=== PATIENT | male | born 1950 | race African-American/Black ===

== ENCOUNTER 2020-08-24 20:31 | Emergency (ER) | payer MEDICARE, OTHER ==
[~2020-08-24] VITALS: Ht 185.4 cm; Wt 105.0 kg
[2020-08-24] MEDS ORDERED: SODIUM CHLORIDE 0.9% 1,000 ML IV ONE (22:45)
[2020-08-24 23:17] LABS: BASOPHILS % 0.5 % (0.0-2.0); EOSINOPHILS % 0.3 % (0.0-5.0); HEMATOCRIT. 50.6 % (42.0-52.0); HEMOGLOBIN. 16.8 g/dL (14.0-18.0); LYMPHOCYTES % 22.8 % (20.0-50.0); MEAN CORPUSCULAR HEMOGLOBIN 29.8 pg (28.0-32.0); MEAN CORPUSCULAR VOLUME 90.1 fL (80.0-94.0); MEAN PLATELET VOLUME 7.9 fl (7.4-10.4); MONOCYTES % 9.2 % (2.0-8.0); NEUTROPHILS % 67.2 % (40.0-76.0); PLATELET 254 x1000/uL (130-400); RED BLOOD CELL COUNT 5.62 mill/uL (4.7-6.1); RED CELL DISTRIBUTION WIDTH 13.3 % (11.6-14.6)
[2020-08-24 23:24] LABS: CHLORIDE 92 mEq/L (98-107)
[2020-08-24 23:30] LABS: BETA HYDROXYBUTYRATE 3.1 mMol/L (0.0-0.3)
[2020-08-25] MEDS ORDERED: SODIUM CHLORIDE 0.9% 1,000 ML IV ONE
[2020-08-25] MEDS ORDERED: INSULIN REGULAR (HUMULIN R) 300UNITS/3ML VIAL IV ONE ×2 (02:30)
[2020-08-25 03:36] LABS: BG BASE EXCESS -3.3 mmol/L (-2.0-2.0); BG CARBOXYHEMOGLOBIN 0.8 % (0.5-1.5); BG DEOXYHEMOGLOBIN 3.9 % (0.0-5.0); BG FRACTION INSPIRED OXYGEN 21; BG HCO3 ACT 21.6 mmol/L (22.0-26.0); BG OXYGEN SATURATION 96.1 % (92.0-98.5); BG OXYHEMOGLOBIN 95.3 % (94.0-97.0); BG PCO2 38.7 mmHg (35.0-45.0); BG PH 7.365 (7.350-7.450); BG PO2 85.3 mmHg (75.0-100.0); BG SAMPLE SITE LEFT RADIAL; BG TOTAL HEMOGLOBIN 16.2 g/dL (12.0-18.0); BG VENT MODE ROOM AIR
[2020-08-25 04:20] VITALS: BP 105/92
== END 2020-08-25 04:20 | disposition home or self-care (01) ==
LOC: ER 20:31
DX: E11.65 Type 2 diabetes mellitus with hyperglycemia (principal); Z91.14 Patient's other noncompliance with medication regimen; Z79.4 Long term (current) use of insulin
CPT/HCPCS: 36415; 36600; 71045; 80053; 82010; 82375; 82805; 82962; 83690; 83880; 85025; 93005; 96361; 96374; 99285; J1815; J7030

== ENCOUNTER 2022-08-25 16:54 | Inpatient (IN) | payer OTHER ==
[~2022-08-25] VITALS: Ht 177.8 cm; Wt 122.9 kg
[2022-08-25 18:16] LABS: BASOPHILS % 0.6 % (0.0-2.0); HEMATOCRIT. 30.6 % (42.0-52.0); HEMOGLOBIN. 9.8 g/dL (14.0-18.0); LYMPHOCYTES % 12.4 % (20.0-50.0); MEAN CORPUSCULAR HEMOGLOBIN 28.1 pg (28.0-32.0); MEAN CORPUSCULAR VOLUME 87.8 fL (80.0-94.0); MEAN PLATELET VOLUME 6.9 fl (7.4-10.4); MONOCYTES % 6.1 % (2.0-8.0); NEUTROPHILS % 78.9 % (40.0-76.0); PLATELET 438 x1000/uL (130-400); RED BLOOD CELL COUNT 3.49 mill/uL (4.7-6.1)
[2022-08-25 18:33] LABS: BG BASE EXCESS -3.8 mmol/L (-2.0-2.0); BG CARBOXYHEMOGLOBIN 0.8 % (0.5-1.5); BG DEOXYHEMOGLOBIN 2.7 % (0.0-5.0); BG FRACTION INSPIRED OXYGEN 36; BG HCO3 ACT 19.4 mmol/L (22.0-26.0); BG METHEMOGLOBIN 0.3 % (0.0-1.5); BG OXYGEN SATURATION 97.3 % (92.0-98.5); BG OXYHEMOGLOBIN 96.2 % (94.0-97.0); BG PCO2 29.3 mmHg (35.0-45.0); BG PH 7.438 (7.350-7.450); BG PO2 94.8 mmHg (75.0-100.0); BG SAMPLE SITE LEFT RADIAL; BG TOTAL HEMOGLOBIN 11.3 g/dL (12.0-18.0); BG VENT MODE NASAL CANNULA
[2022-08-25 18:51] LABS: CHLORIDE 103 mEq/L (98-107)
[2022-08-25] MEDS ORDERED: VANCOMYCIN 1G PREMIX 200 ML IV ONE (20:00)
[2022-08-25] MEDS ORDERED: FUROSEMIDE 40MG/4ML VIAL IVP ONE (20:00)
[2022-08-25] MEDS ORDERED: PIPERACILLIN/TAZ 3.375G PREMIX 50 ML IV ONE (20:00)
[2022-08-25 20:03] LABS: INR 1.1; PROTHROMBIN TIME 12.1 sec (9.6-11.0)
[2022-08-26] MEDS ORDERED: IOHEXOL-350 100 ML BOTTLE ONE (05:27)
[2022-08-26] MEDS ORDERED: MAGNESIUM/ALUMINUM HYDROXIDE/SIMETHICONE 30ML UDC PO PRN (06:45)
[2022-08-26] MEDS ORDERED: KETOROLAC 15MG/ML VIAL IV PRN (06:45)
[2022-08-26] MEDS ORDERED: DEXTROSE 50% WATER 50ML SYRINGE IV PRN (06:45)
[2022-08-26] MEDS ORDERED: CLONIDINE 0.1MG TABLET PO PRN (06:45)
[2022-08-26] MEDS ORDERED: NA PHOS,M-B/NA PHOS,DI-BA ENEMA 118ML PR PRN (06:45)
[2022-08-26] MEDS: AMLODIPINE 10MG TABLET PO SCH (06:45)
[2022-08-26] MEDS ORDERED: DOCUSATE SODIUM 100MG CAPSULE PO PRN (06:45)
[2022-08-26] MEDS ORDERED: IPRATROPIUM/ALBUTEROL 0.5-3(2.5)MG/3ML NEB NEB PRN (06:45)
[2022-08-26] MEDS ORDERED: ACETAMINOPHEN 325MG TABLET PO PRN ×2 (06:45)
[2022-08-26] MEDS ORDERED: NITROGLYCERIN 0.4MG TABLET SL SL PRN (06:45)
[2022-08-26] MEDS ORDERED: ONDANSETRON HCL 4MG/2ML INJ IV PRN (06:45)
[2022-08-26] MEDS ORDERED: ZOLPIDEM TARTRATE 5MG TABLET PO PRN (06:45)
[2022-08-26] MEDS ORDERED: GUAIFENESIN 200MG/10ML SUGAR FREE UDC PO PRN (06:45)
[2022-08-26] MEDS ORDERED: VANCOMYCIN 1G PREMIX 200 ML IV SCH (07:00)
[2022-08-26] MEDS: FUROSEMIDE 40MG/4ML VIAL IVP SCH ×2 (08:00→18:40)
[2022-08-26] MEDS ORDERED: PIPERACILLIN/TAZ 3.375G PREMIX 50 ML IV SCH (08:00)
[2022-08-26] MEDS: INSULIN LISPRO 100 UNITS/ML SUBCUT SCH ×4 (08:57→21:53)
[2022-08-26] MEDS: BLOOD SUGAR DIAGNOSTIC STRIP TEST SCH ×4 (09:00→21:45)
[2022-08-26] MEDS ORDERED: ENOXAPARIN 40MG/0.4ML SYR SUBCUT SCH (09:00)
[2022-08-26 10:00] VITALS: BP 141/85
[2022-08-26 10:10] LABS: T4 FREE 1.17 ng/dL (0.76-1.46)
[2022-08-26 10:47] LABS: VITAMIN B12 SERUM 1316 pg/mL (211-911)
[2022-08-26 12:00] VITALS: BP 145/89
[2022-08-26] MEDS: INSULIN GLARGINE 100 UNITS/ML SUBCUT SCH (13:14)
[2022-08-26] MEDS: ASCORBIC ACID 500 MG TABLET PO SCH ×2 (13:15→20:48)
[2022-08-26] MEDS: SPIRONOLACTONE 25MG TABLET PO SCH ×2 (13:15→20:48)
[2022-08-26] MEDS: LOSARTAN POTASSIUM 50 MG TABLET PO SCH (13:16)
[2022-08-26] MEDS: FAMOTIDINE 20MG TABLET PO SCH ×2 (13:16→20:46)
[2022-08-26] MEDS: ZINC SULFATE 220 MG ( 50 ) CAPSULE PO SCH (13:16)
[2022-08-26] MEDS: ASPIRIN 325MG EC TABLET PO SCH (13:19)
[2022-08-26 14:00] VITALS: BP 136/84
[2022-08-26] MEDS ORDERED: NPH,100V SQ (14:51)
[2022-08-26] MEDS ORDERED: INSU100V3 SUBCUT (14:51)
[2022-08-26] MEDS ORDERED: ASCO500C18 MT (14:51)
[2022-08-26] MEDS ORDERED: FURO40TA5 MT (14:51)
[2022-08-26] MEDS ORDERED: ATOR40TA70 MT (14:51)
[2022-08-26] MEDS ORDERED: AMLO-337 MT (14:51)
[2022-08-26] MEDS ORDERED: ERGO1250 (14:51)
[2022-08-26] MEDS ORDERED: LOSA1TAB34 MT (14:51)
[2022-08-26] MEDS ORDERED: METO25TA6 MT (14:51)
[2022-08-26 15:04] VITALS: BP 141/82
[2022-08-26 16:00] VITALS: BP 138/87
[2022-08-26 17:30] LABS: CREATINE KINASE MB FRACTION 4.1 ng/mL (0.5-3.6)
[2022-08-26 17:43] VITALS: BP 142/84
[2022-08-26] MEDS: PIPERACILLIN/TAZOBACTAM 3.375G in DEXT 5% WATER 50ML IV SCH (18:40)
[2022-08-26] MEDS: ENOXAPARIN 30MG/0.3ML SYR SUBCUT SCH (20:46)
[2022-08-26] MEDS ORDERED: PIPERACILLIN/TAZOBACTAM 3.375G in DEXT 5% WATER 50ML IV SCH (22:00)
[2022-08-27] VITALS: BP 136/67
[2022-08-27] MEDS: VANCOMYCIN 1.25GM PMX (XELLIA) 250 ML IV SCH ×2 (02:35→18:11)
[2022-08-27 04:00] VITALS: BP 160/80
[2022-08-27] MEDS: PIPERACILLIN/TAZOBACTAM 3.375G in DEXT 5% WATER 50ML IV SCH ×3 (05:32→18:10)
[2022-08-27] MEDS: FUROSEMIDE 40MG/4ML VIAL IVP SCH ×2 (05:32→18:10)
[2022-08-27] MEDS: BLOOD SUGAR DIAGNOSTIC STRIP TEST SCH ×4 (05:55→21:42)
[2022-08-27] MEDS: INSULIN LISPRO 100 UNITS/ML SUBCUT SCH ×4 (05:56→21:42)
[2022-08-27 07:47] LABS: BASOPHILS % 0.3 % (0.0-2.0); EOSINOPHILS % 2.6 % (0.0-5.0); HEMOGLOBIN. 8.8 g/dL (14.0-18.0); LYMPHOCYTES % 8.4 % (20.0-50.0); MEAN CORPUSCULAR HEMOGLOBIN 28.2 pg (28.0-32.0); MEAN CORPUSCULAR VOLUME 86.9 fL (80.0-94.0); MONOCYTES % 8.1 % (2.0-8.0); NEUTROPHILS % 80.6 % (40.0-76.0); PLATELET 410 x1000/uL (130-400); RED CELL DISTRIBUTION WIDTH 16.7 % (11.6-14.6)
[2022-08-27] MEDS: SODIUM HYPOCHLORITE (0.25%) 480ML SOLUTION (HALF STRENGTH) TOP SCH (09:00)
[2022-08-27] MEDS: ENOXAPARIN 30MG/0.3ML SYR SUBCUT SCH ×2 (09:00→21:04)
[2022-08-27] MEDS: ASCORBIC ACID 500 MG TABLET PO SCH ×2 (10:20→20:59)
[2022-08-27] MEDS: SPIRONOLACTONE 25MG TABLET PO SCH ×2 (10:21→21:00)
[2022-08-27] MEDS: ZINC SULFATE 220 MG ( 50 ) CAPSULE PO SCH (10:21)
[2022-08-27] MEDS: AMLODIPINE 10MG TABLET PO SCH (10:22)
[2022-08-27] MEDS: FAMOTIDINE 20MG TABLET PO SCH ×2 (10:22→21:00)
[2022-08-27] MEDS: LOSARTAN POTASSIUM 50 MG TABLET PO SCH (10:23)
[2022-08-27] MEDS: ASPIRIN 325MG EC TABLET PO SCH (10:23)
[2022-08-27] MEDS: INSULIN GLARGINE 100 UNITS/ML SUBCUT SCH (10:45)
[2022-08-27 12:00] VITALS: BP 141/60
[2022-08-27 16:00] VITALS: BP 103/62
[2022-08-27 19:28] VITALS: BP 145/76
[2022-08-27 20:00] VITALS: BP 136/75
[2022-08-28] VITALS: BP 128/70
[2022-08-28 02:04] LABS: CHLORIDE 104 mEq/L (98-107)
[2022-08-28 03:43] LABS: PHOSPHORUS 4.8 mg/dL (2.5-4.9)
[2022-08-28 04:00] VITALS: BP 156/79
[2022-08-28] MEDS: FUROSEMIDE 40MG/4ML VIAL IVP SCH ×3 (05:38→17:52)
[2022-08-28] MEDS: PIPERACILLIN/TAZOBACTAM 3.375G in DEXT 5% WATER 50ML IV SCH ×3 (05:38→21:50)
[2022-08-28] MEDS: BLOOD SUGAR DIAGNOSTIC STRIP TEST SCH ×4 (05:44→21:44)
[2022-08-28] MEDS: INSULIN LISPRO 100 UNITS/ML SUBCUT SCH ×4 (05:45→21:00)
[2022-08-28 08:00] VITALS: BP 173/89
[2022-08-28] MEDS: ENOXAPARIN 30MG/0.3ML SYR SUBCUT SCH ×2 (09:40→21:41)
[2022-08-28] MEDS: SPIRONOLACTONE 25MG TABLET PO SCH ×2 (09:41→21:40)
[2022-08-28] MEDS: AMLODIPINE 10MG TABLET PO SCH (09:41)
[2022-08-28] MEDS: ASPIRIN 325MG EC TABLET PO SCH (09:41)
[2022-08-28] MEDS: ASCORBIC ACID 500 MG TABLET PO SCH ×2 (09:41→21:40)
[2022-08-28] MEDS: ZINC SULFATE 220 MG ( 50 ) CAPSULE PO SCH (09:41)
[2022-08-28] MEDS: LOSARTAN POTASSIUM 50 MG TABLET PO SCH (09:41)
[2022-08-28] MEDS: FAMOTIDINE 20MG TABLET PO SCH ×2 (09:43→21:40)
[2022-08-28] MEDS: INSULIN GLARGINE 100 UNITS/ML SUBCUT SCH (09:51)
[2022-08-28] MEDS: SODIUM HYPOCHLORITE (0.25%) 480ML SOLUTION (HALF STRENGTH) TOP SCH (09:51)
[2022-08-28 12:00] VITALS: BP 179/85
[2022-08-28] MEDS: VANCOMYCIN 1.25GM PMX (XELLIA) 250 ML IV SCH (13:20)
[2022-08-28 16:00] VITALS: BP 139/73
[2022-08-28 20:00] VITALS: BP 147/73
[2022-08-29 00:49] VITALS: BP 163/72
[2022-08-29 04:00] VITALS: BP 130/57
[2022-08-29] MEDS: PIPERACILLIN/TAZOBACTAM 3.375G in DEXT 5% WATER 50ML IV SCH ×3 (06:27→21:04)
[2022-08-29] MEDS: FUROSEMIDE 40MG/4ML VIAL IVP SCH ×2 (06:28→17:42)
[2022-08-29] MEDS: BLOOD SUGAR DIAGNOSTIC STRIP TEST SCH ×4 (06:30→21:06)
[2022-08-29] MEDS: INSULIN LISPRO 100 UNITS/ML SUBCUT SCH ×4 (06:56→21:08)
[2022-08-29 07:59] LABS: BASOPHILS % 0.4 % (0.0-2.0); EOSINOPHILS % 1.9 % (0.0-5.0); HEMATOCRIT. 28.6 % (42.0-52.0); HEMOGLOBIN. 9.2 g/dL (14.0-18.0); LYMPHOCYTES % 14.8 % (20.0-50.0); MEAN CORPUSCULAR VOLUME 86.9 fL (80.0-94.0); MEAN PLATELET VOLUME 6.9 fl (7.4-10.4); MONOCYTES % 6.2 % (2.0-8.0); NEUTROPHILS % 76.7 % (40.0-76.0); PLATELET 476 x1000/uL (130-400); RED BLOOD CELL COUNT 3.29 mill/uL (4.7-6.1)
[2022-08-29] MEDS: ZINC SULFATE 220 MG ( 50 ) CAPSULE PO SCH (08:20)
[2022-08-29] MEDS: SODIUM HYPOCHLORITE (0.25%) 480ML SOLUTION (HALF STRENGTH) TOP SCH (08:20)
[2022-08-29] MEDS: ASCORBIC ACID 500 MG TABLET PO SCH ×2 (08:20→21:06)
[2022-08-29] MEDS: FAMOTIDINE 20MG TABLET PO SCH ×2 (08:20→21:06)
[2022-08-29] MEDS: ASPIRIN 325MG EC TABLET PO SCH (08:20)
[2022-08-29] MEDS: ENOXAPARIN 30MG/0.3ML SYR SUBCUT SCH ×2 (08:20→21:06)
[2022-08-29] MEDS: LOSARTAN POTASSIUM 50 MG TABLET PO SCH (08:20)
[2022-08-29] MEDS: SPIRONOLACTONE 25MG TABLET PO SCH ×2 (08:20→21:06)
[2022-08-29] MEDS: AMLODIPINE 10MG TABLET PO SCH (08:20)
[2022-08-29] MEDS: INSULIN GLARGINE 100 UNITS/ML SUBCUT SCH (10:00)
[2022-08-29 12:00] VITALS: BP 150/68
[2022-08-29] MEDS ORDERED: VANCOMYCIN 1G PREMIX 200 ML IV SCH (13:00)
[2022-08-29 16:00] VITALS: BP 120/75
[2022-08-29 20:00] VITALS: BP 138/66
[2022-08-29] MEDS ORDERED: VANCOMYCIN 1G PREMIX 200 ML IV NR (21:00)
[2022-08-30] VITALS: BP 154/70
[2022-08-30 04:00] VITALS: BP 133/65
[2022-08-30] MEDS: PIPERACILLIN/TAZOBACTAM 3.375G in DEXT 5% WATER 50ML IV SCH ×3 (06:36→21:20)
[2022-08-30] MEDS: FUROSEMIDE 40MG/4ML VIAL IVP SCH ×2 (06:37→18:00)
[2022-08-30] MEDS: BLOOD SUGAR DIAGNOSTIC STRIP TEST SCH ×4 (06:46→21:00)
[2022-08-30] MEDS: INSULIN LISPRO 100 UNITS/ML SUBCUT SCH ×4 (06:47→21:00)
[2022-08-30] MEDS: SODIUM HYPOCHLORITE (0.25%) 480ML SOLUTION (HALF STRENGTH) TOP SCH (09:00)
[2022-08-30] MEDS: ENOXAPARIN 30MG/0.3ML SYR SUBCUT SCH ×2 (09:06→21:07)
[2022-08-30] MEDS: FAMOTIDINE 20MG TABLET PO SCH ×2 (09:07→21:07)
[2022-08-30] MEDS: SPIRONOLACTONE 25MG TABLET PO SCH ×2 (09:07→21:07)
[2022-08-30] MEDS: ZINC SULFATE 220 MG ( 50 ) CAPSULE PO SCH (09:07)
[2022-08-30] MEDS: LOSARTAN POTASSIUM 50 MG TABLET PO SCH (09:07)
[2022-08-30] MEDS: ASCORBIC ACID 500 MG TABLET PO SCH ×2 (09:07→21:08)
[2022-08-30] MEDS: ASPIRIN 325MG EC TABLET PO SCH (09:07)
[2022-08-30] MEDS: AMLODIPINE 10MG TABLET PO SCH (09:07)
[2022-08-30] MEDS: INSULIN GLARGINE 100 UNITS/ML SUBCUT SCH (09:10)
[2022-08-30 12:00] VITALS: BP 153/77
[2022-08-30 16:00] VITALS: BP 138/59
[2022-08-30 16:15] VITALS: BP 140/64
[2022-08-30 20:00] VITALS: BP 121/61
[2022-08-31] VITALS: BP 136/62
[2022-08-31 04:00] VITALS: BP 123/66
[2022-08-31] MEDS: PIPERACILLIN/TAZOBACTAM 3.375G in DEXT 5% WATER 50ML IV SCH (05:46)
[2022-08-31] MEDS: FUROSEMIDE 40MG/4ML VIAL IVP SCH (05:49)
[2022-08-31] MEDS: BLOOD SUGAR DIAGNOSTIC STRIP TEST SCH ×2 (05:49→13:17)
[2022-08-31] MEDS: INSULIN LISPRO 100 UNITS/ML SUBCUT SCH ×2 (05:53→16:28)
[2022-08-31 08:00] VITALS: BP 139/68
[2022-08-31] MEDS: FAMOTIDINE 20MG TABLET PO SCH (09:32)
[2022-08-31] MEDS: ASCORBIC ACID 500 MG TABLET PO SCH (09:32)
[2022-08-31] MEDS: SPIRONOLACTONE 25MG TABLET PO SCH (09:32)
[2022-08-31] MEDS: LOSARTAN POTASSIUM 50 MG TABLET PO SCH (09:32)
[2022-08-31] MEDS: ASPIRIN 325MG EC TABLET PO SCH (09:32)
[2022-08-31] MEDS: AMLODIPINE 10MG TABLET PO SCH (09:33)
[2022-08-31] MEDS: ZINC SULFATE 220 MG ( 50 ) CAPSULE PO SCH (09:38)
[2022-08-31] MEDS: ENOXAPARIN 30MG/0.3ML SYR SUBCUT SCH (09:38)
[2022-08-31 12:00] VITALS: BP 145/64
[2022-08-31] MEDS ORDERED: METRONIDAZOLE 500MG TABLET PO SCH (13:28)
[2022-08-31] MEDS ORDERED: CEFTRIAXONE 2 G in DEXTROSE 5% WATER 50 ML IV SCH (14:30)
[2022-08-31 16:00] VITALS: BP 132/46
[2022-08-31] MEDS: SODIUM HYPOCHLORITE (0.25%) 480ML SOLUTION (HALF STRENGTH) TOP SCH (16:24)
[2022-08-31] MEDS: INSULIN GLARGINE 100 UNITS/ML SUBCUT SCH (16:30)
== END 2022-08-31 17:55 | disposition short-term general hospital (02) | DRG 853 ==
LOC: ER 16:54 → EDBEDREQ 19:19 → 5EST 08-26 04:22 → EDBEDREQDT 08-26 04:46 → EDBEDREQSVC 08-26 04:46 → EDBEDREQTM 08-26 04:46 → EDBEDREQ 08-26 04:46 → 7WST 08-26 23:39
PROVIDERS: ADMIT Internal Medicine; ATTEND Internal Medicine
PROC: 0LBV0ZZ Excision of Right Foot Tendon, Open Approach (ICD-10-PCS; principal; 2022-08-28)
DX: A40.9 Streptococcal sepsis, unspecified (principal); E43 Unspecified severe protein-calorie malnutrition; E87.1 Hypo-osmolality and hyponatremia; M86.8X7 Other osteomyelitis, ankle and foot; L97.413 Non-pressure chronic ulcer of right heel and midfoot with necrosis of muscle; I11.0 Hypertensive heart disease with heart failure; D63.8 Anemia in other chronic diseases classified elsewhere; E83.51 Hypocalcemia; E11.65 Type 2 diabetes mellitus with hyperglycemia; E11.69 Type 2 diabetes mellitus with other specified complication; Z20.822 Contact with and (suspected) exposure to COVID-19; I50.9 Heart failure, unspecified; E66.9 Obesity, unspecified; Z68.38 Body mass index [BMI] 38.0-38.9, adult; Z79.899 Other long term (current) drug therapy; E11.621 Type 2 diabetes mellitus with foot ulcer
CPT/HCPCS: 36415; 36600; 71045; 71275; 73630; 80048; 80053; 80061; 80202; 82375; 82550; 82553; 82607; 82746; 82805; 82962; 83036; 83540; 83550; 83605; 83735; 83880; 84100; 84145; 84439; 84443; 84484; 85025; 85651; 87070; 87075; 87076; 87077; 87186; 87426; 93005; 93306; 93923; 99285; J0696; J1650; J1815; J1940; J2543; J3370; J7060; Q9967